=== PATIENT | male | born 1990 | race Caucasian/White ===

== ENCOUNTER 2018-01-07 13:02 | Emergency (ER) | payer OTHER ==
[2018-01-07 13:08] VITALS: O2SAT 97
--- NOTE | 2018-01-07 14:22 | EDPHY ---
H & P Stated Complaint: slipped on ice fell back-?hit head??pos loc, nausea, foggy, no nck pain - Medical/Surgical History Hx Asthma: No Hx Chronic Respiratory Disease: No Hx Diabetes: No Hx Cardiac Disease: No Hx Renal Disease: No Hx Cirrhosis: No Hx Alcoholism: No Hx HIV/AIDS: No Hx Splenectomy or Spleen Trauma: No Other PMH: depression - Social History Smoking Status: Never smoked Time Seen by Provider: 01/07/18 14:13 HPI/ROS: CHIEF COMPLAINT: Head injury, headache, "I feel out of it " HISTORY OF PRESENT ILLNESS: 27-year-old male with no anticoagulant use history states that he slipped on ice it 740 this morning, fell onto his buttock and impacted the occiput of his head with it is possible brief loss of consciousness , brief amnesia. He is complaining of headache and "cognitive difficulty ". States that he is feeling "out of it ". No gait instability. No slurred speech. No visual disturbance. No nausea or vomiting. No midline C-spine pain. No peripheral paresthesia, weakness, numbness. No buttock or back pain. PRIMARY CARE PROVIDER: REVIEW OF SYSTEMS: A ten point review of systems was performed and is negative with the exception of the items mentioned in the HPI PAST MEDICAL/SURGICAL HISTORY: Depression. no anticoagulant use, SOCIAL HISTORY: denies alcohol use at time of incident PHYSICAL EXAM 1) GENERAL: Well-developed, well-nourished, alert and oriented. Appears to be in no acute distress. Answering questions appropriately. 2) HEAD: Normocephalic, atraumatic 3) HEENT: Pupils equal, round, reactive to light bilaterally. Negative Horners. Nasopharynx, oropharynx, clear. No deformity or angulation of nose. No septal hematoma. No rhinorrhea. No oral trauma. Ears bilaterally with normal tympanic membranes. No hemotympanum. No fluid or blood in the external auditory canal. No raccoon eyes. No Bee sign. Teeth are normally aligned with no gross malocclusion, TMJ bilaterally nontender, facial bones nontender including the zygomatic arch, maxilla mandible. 4) NECK: No cervical collar is on. Posterior cervical spine is nontender, no stepoff, no effusion. Full range of motion which does not elicit any midline cervical spine pain, no posterior midline tenderness, no step-off. 5) LUNGS: Clear to auscultation bilaterally, no wheezes, no rhonchi, no retractions. No obvious signs of trauma. No chest wall pain. No flaring, no grunting. Moving symmetrically. No crepitus. 6) HEART: [Regular rate and rhythm, 7) ABDOMEN: No guarding, no rebound, no focal tenderness, no peritoneal signs, no signs of trauma, no ecchymosis 8) MUSCULOSKELETAL: Moving all extremities, no focal areas of tenderness, no obvious trauma. 9) BACK: No midline vertebral tenderness, no fluctuance, no step-off, no obvious trauma, no visual or palpable abnormality. 10) SKIN: No laceration. No abrasion 11) NEURO: Awake, alert, and oriented to person, place and time. Answers questions appropriately. There were no obvious focal neurologic abnormalities. No cerebellar dysfunction. Normal steady gait. Upper and lower extremities bilaterally with strength 5 / 5, reflexes 2+. DIFFERENTIAL DIAGNOSIS: Not necessarily in any particular order, my differential diagnosis includes, but is not limited to, concussion, skull fracture, intraparenchymal contusion, subarachnoid, subdural and epidural hematoma. The patient understands that this diagnosis is provisional and can never be 100% accurate. (Esther Jolly) Constitutional: Initial Vital Signs Temperature (C) 36.0 C 01/07/18 13:05 Heart Rate 83 01/07/18 13:05 Respiratory Rate 18 01/07/18 13:05 Blood Pressure 132/80 H 01/07/18 13:05 O2 Sat (%) 97 01/07/18 13:05 O2 Delivery Mode Room Air Allergies/Adverse Reactions: No Known Allergies Allergy (Unverified 01/07/18 13:03) Home Medications: Medication Instructions Recorded Paroxetine Cr 01/07/18 Medical Decision Making - Diagnostics Imaging Results: Imaging Impressions Head CT 01/07/18 14:20 Impression: There is no acute intracranial abnormality identified on this unenhanced CT evaluation. If there is further clinical concern regarding the patient's symptoms, MR imaging is suggested, if not otherwise contraindicated. Findings were discussed with Mc Jolly PA-C at 15:08, on 01/07/2018. ED Course/Re-evaluation: 2:20 p.m.: Head CT ordered in this patient for trauma for the following indication: severe headache, head injury. The indications risks benefits including but not limited to radiation exposure, financial cost, discussed with patient and he consents. Care of patient under supervision of secondary supervising physician Dr Zeb Astudillo. 3:18 p.m.: Patient was re-evaluated at this time. Remains with a nonfocal exam. I discussed his imaging results which are negative for acute posttraumatic sequelae. Plan will be discharged with usual and customary head injury precautions and instructions including 2nd impact syndrome. Given follow -up information. He feels comfortable being discharged. All questions and concerns addressed by myself. (Esther Jolly) I did not see this patient while he was in the emergency department. However his care was discussed with the PA while the patient was in the department. I agree with treatment plan and management (Zeb Astudillo S) Departure - Departure Disposition: Home, Routine, Self-Care Clinical Impression: Head injury due to trauma Qualifiers: Encounter type: initial encounter Qualified Code(s): S09.90XA - Unspecified injury of head, initial encounter Fall from slipping on ice Qualifiers: Encounter type: initial encounter Qualified Code(s): W00.9XXA - Unspecified fall due to ice and snow, initial encounter Condition: Good Instructions: Head Injury (ED) Additional Instructions: PLEASE RETURN TO THE EMERGENCY DEPARTMENT (ED) IMMEDIATELY IF YOU HAVE INCREASED HEADACHE, PERSISTENT HEADACHE, VOMITING, WEAKNESS, CONFUSION OR VISUAL PROBLEMS. WE RECOMMEND THAT YOU DO NOT RESUME CONTACT SPORTS OR ACTIVITIES THAT TAKE COORDINATION OR BALANCE SUCH SKIING OR RIDING A BICYCLE UNTIL CLEARED TO DO SO BY YOUR DOCTOR OR BY A NEUROLOGIST. Referrals: Roseanne Blount MD [Medical Doctor] - 5-7 days, call for appt.
[2018-01-07 15:28] VITALS: BP 146/92; PULSE 92; RESP 14; TEMP 98.6
== END 2018-01-07 15:50 | disposition home or self-care (01) ==
DX: S09.90XA Unspecified injury of head, initial encounter (principal); W00.0XXA Fall on same level due to ice and snow, initial encounter